=== PATIENT | male | born 1980 | race African-American/Black ===

== ENCOUNTER 2018-12-17 13:02 | Emergency (ER) | payer SELFPAY ==
[2018-12-17] MEDS ORDERED: Sodium Chloride 0.9% 1,000 ML IV ONE (13:19)
[2018-12-17] MEDS ORDERED: Ondansetron 4 MG/2 ML SDV IVPUSH ONE (13:19)
--- NOTE | 2018-12-17 13:23 | EDM.PDOC ---
ED HPI GENERAL MEDICAL PROBLEM - General Chief Complaint: Gastrointestinal Problem Stated Complaint: DAISY FELL WELL Time Seen by Provider: 12/17/18 13:06 Source of Information: Reports: Patient History Limitations: Reports: No Limitations - History of Present Illness INITIAL COMMENTS - FREE TEXT/NARRATIVE: HISTORY AND PHYSICAL: History of present illness: Patient is a 38-year-old male who presents to the emergency room with complaints of nausea, vomiting and dizziness. He reports that he had woke up this morning and had felt well. He presented to work and after lunch had nausea and several bouts of vomiting. He states "I felt like I had been drinking" but has not been consuming any alcohol. Upon presenting to the emergency room he states that he feels "unwell". He denies any dizziness at this point. States he does still have nausea. Patient denies any fever, chills, headache, change in vision, syncope or near syncope. Denies any chest pain, back pain, shortness of breath or cough. Denies any abdominal pain, diarrhea, constipation or dysuria. Has not noted any blood in urine or stool. Patient has been eating and drinking appropriately. Review of systems: As per history of present illness and below otherwise all systems reviewed and negative. Past medical history: As per history of present illness and as reviewed below otherwise noncontributory. Surgical history: As per history of present illness and as reviewed below otherwise noncontributory. Social history: See social history for further information Family history: As per history of present illness and as reviewed below otherwise noncontributory. Physical exam: General: Well-developed and well nourished 38-year-old -[place] male. Alert and oriented. Nontoxic appearing and in no acute distress. HEENT: Atraumatic, normocephalic, pupils equal and reactive bilaterally, negative for conjunctival pallor or scleral icterus, mucous membranes moist, TMs normal bilaterally, throat clear, neck supple, nontender, trachea midline. No drooling or trismus noted. No meningeal signs. No hot potato voice noted. Lungs: Clear to auscultation, breath sounds equal bilaterally, chest nontender. Heart: S1S2, regular rate and rhythm without overt murmur Abdomen: Soft, nondistended, nontender. Negative for masses or hepatosplenomegaly. Negative for costovertebral tenderness. Pelvis: Stable nontender. Genitourinary: Deferred. Rectal: Deferred. Skin: Intact, warm, dry. No lesions or rashes noted. Extremities: Atraumatic, moves all extremities per self without difficulty or deficits, negative for cords or calf pain. Neurovascular unremarkable. Neuro: Awake, alert, oriented. Cranial nerves II through XII unremarkable. Cerebellum unremarkable. Motor and sensory unremarkable throughout. Exam nonfocal. Notes: Lab work is unremarkable. Vital signs are stable and have been reviewed by me. Patient does feel improved after IV fluids and Zofran. He would like to be discharged to home. He continues to deny any chest or abdominal pain. Supportive care measures were reviewed and discussed. Voices understanding and is agreeable to plan of care. Denies any further questions or concerns at this time. Diagnostics: CBC, CMP, EKG, orthostatic vital signs Therapeutics: IV fluid, Zofran Prescription: None Impression: Viral illness Plan: 1. Please use Tylenol and/or Ibuprofen as needed for pain and fever management. 2. Get plenty of Rest. Encourage fluids to prevent dehydration. 3. Please follow up with your primary care provider. Return to the ED as needed as discussed. Definitive disposition and diagnosis as appropriate pending reevaluation and review of above. - Related Data Allergies Allergy/AdvReac Type Severity Reaction Status Date / Time No Known Allergies Allergy Verified 12/17/18 13:11 Home Meds: Home Meds . [No Known Home Meds] 01/16/15 [History] . [No Known Home Meds] 02/27/15 [History] Past Medical History - Past Health History Medical/Surgical History: Denies Medical/Surgical History Social & Family History - Family History Family Medical History: Noncontributory - Tobacco Use Smoking Status *Q: Current Every Day Smoker Years of Tobacco use: 20 Packs/Tins Daily: 1 - Caffeine Use Caffeine Use: Reports: None - Recreational Drug Use Recreational Drug Use: No ED ROS GENERAL - Review of Systems Review Of Systems: ROS reveals no pertinent complaints other than HPI. ED EXAM, GI/ABD - Physical Exam Exam: See Below (See dictation) Course - Vital Signs Last Recorded V/S: Last Vital Signs Temp 97.4 F 12/17/18 13:12 Pulse 69 12/17/18 13:12 Resp 18 12/17/18 13:12 BP 134/80 12/17/18 13:12 Pulse Ox 99 12/17/18 13:12 Orthostatic Blood Pressure [ 148/81 Standing] Orthostatic Blood Pressure [ 140/88 Sitting] Orthostatic Blood Pressure [ 145/85 Supine] - Orders/Labs/Meds Orders: Active Orders 24 hr Category Date Time Status EKG 12 Lead [EKG Documentation Completion] [RC] STAT Care 12/17/18 13:19 Active Orthostatic Vital Signs [RC] ASDIRECTED Care 12/17/18 13:19 Active Labs: Laboratory Tests 12/17/18 12/17/18 Range/Units 13:33 13:33 WBC 5.64 (4.0-11.0) K/uL RBC 5.09 (4.50-5.90) M/uL Hgb 16.0 (13.0-17.0) g/dL Hct 44.0 (38.0-50.0) % MCV 86.4 (80.0-98.0) fL MCH 31.4 (27.0-32.0) pg MCHC 36.4 (31.0-37.0) g/dL RDW Std Deviation 40.6 (28.0-62.0) fl RDW Coeff of Dru 13 (11.0-15.0) % Plt Count 108 L (150-400) K/uL MPV 11.10 (7.40-12.00) fL Neut % (Auto) 45.2 L (48.0-80.0) % Lymph % (Auto) 43.1 H (16.0-40.0) % [place] % (Auto) 10.1 (0.0-15.0) % Eos % (Auto) 1.2 (0.0-7.0) % Baso % (Auto) 0.4 (0.0-1.5) % Neut # (Auto) 2.6 (1.4-5.7) K/uL Lymph # (Auto) 2.4 (0.6-2.4) K/uL [place] # (Auto) 0.6 (0.0-0.8) K/uL Eos # (Auto) 0.1 (0.0-0.7) K/uL Baso # (Auto) 0.0 (0.0-0.1) K/uL Nucleated RBC % 0.0 /100WBC Nucleated RBCs # 0 K/uL Sodium 139 (136-148) mmol/L Potassium 3.6 (3.5-5.1) mmol/L Chloride 102 (98-107) mmol/L Carbon Dioxide 25.8 (21.0-32.0) mmol/L BUN 9 (7.0-18.0) mg/dL Creatinine 0.8 (0.8-1.3) mg/dL Est Cr Clr Drug Dosing 139.93 mL/min Estimated GFR (MDRD) > 60.0 ml/min Glucose 92 (74-106) mg/dL Calcium 9.2 (8.5-10.1) mg/dL Total Bilirubin 0.8 (0.2-1.0) mg/dL AST 28 (15-37) IU/L ALT 33 (14-63) IU/L Alkaline Phosphatase 79 (46-116) U/L Total Protein 7.6 (6.4-8.2) g/dL Albumin 4.2 (3.4-5.0) g/dL Globulin 3.4 (2.6-4.0) g/dL Albumin/Globulin Ratio 1.2 (0.9-1.6) Meds: Medications Discontinued Medications Generic Name Dose Route Start Last Admin Trade Name Freq PRN Reason Stop Dose Admin Sodium Chloride 1,000 mls @ 999 mls/hr 12/17/18 13:19 12/17/18 13:36 Normal Saline IV 12/17/18 14:19 999 mls/hr STAT ONE Administration Ondansetron HCl 4 mg 12/17/18 13:19 12/17/18 13:36 Zofran IVPUSH 12/17/18 13:20 4 mg ONETIME ONE Administration Departure - Departure Time of Disposition: 14:24 Disposition: Home, Self-Care 01 Clinical Impression: Viral illness - Discharge Information Instructions: Viral Gastroenteritis, Adult, [id number] Referrals: PCP,Unknown [Primary Care Provider] - Forms: ED Department Discharge Additional Instructions: The following information is given to patients seen in the emergency department who are being discharged to home. This information is to outline your options for follow-up care. We provide all patients seen in our emergency department with a follow-up referral. The need for follow-up, as well as the timing and circumstances, are variable depending upon the specifics of your emergency department visit. If you don't have a primary care physician on staff, we will provide you with a referral. We always advise you to contact your personal physician following an emergency department visit to inform them of the circumstance of the visit and for follow-up with them and/or the need for any referrals to a consulting specialist. The emergency department will also refer you to a specialist when appropriate. This referral assures that you have the opportunity for follow-up care with a specialist. All of these measure are taken in an effort to provide you with optimal care, which includes your follow-up. Under all circumstances we always encourage you to contact your private physician who remains a resource for coordinating your care. When calling for follow-up care, please make the office aware that this follow-up is from your recent emergency room visit. If for any reason you are refused follow-up, please contact the [facility] Emergency Department at and asked to speak to the emergency department charge nurse. [facility] [address] [place] [address] [place] [address] 1. Please use Tylenol and/or Ibuprofen as needed for pain and fever management. 2. Get plenty of Rest. Encourage fluids to prevent dehydration. 3. Please follow up with your primary care provider. Return to the ED as needed as discussed. - My Orders Last 24 Hours: My Active Orders 12/17/18 13:19 EKG 12 Lead [EKG Documentation Completion] [RC] STAT Orthostatic Vital Signs [RC] ASDIRECTED - Assessment/Plan Last 24 Hours: My Active Orders 12/17/18 13:19 EKG 12 Lead [EKG Documentation Completion] [RC] STAT Orthostatic Vital Signs [RC] ASDIRECTED
[2018-12-17 14:21] LABS: CHLORIDE,CL 102 mmol/L (98-107); SODIUM,NA 139 mmol/L (136-148)
[2018-12-17 14:34] VITALS: BP 134/69
== END 2018-12-17 14:40 | disposition home or self-care (01) ==
LOC: MW.ED 13:02
DX: B34.9 Viral infection, unspecified (principal); F17.210 Nicotine dependence, cigarettes, uncomplicated
CPT/HCPCS: 36415; 80053; 85025; 93005; 96361; 96374; 99283; J2405; J7040

== ENCOUNTER 2019-02-21 19:44 | Emergency (ER) | payer SELFPAY ==
[2019-02-21 19:56] VITALS: BP 121/77; PULSE 79
--- NOTE | 2019-02-21 20:15 | EDM.PDOC ---
ED HPI GENERAL MEDICAL PROBLEM - General Chief Complaint: Neuro Symptoms/Deficits Stated Complaint: PT HAS INFECTION Time Seen by Provider: 02/21/19 19:52 Source of Information: Reports: Patient History Limitations: Reports: No Limitations - History of Present Illness INITIAL COMMENTS - FREE TEXT/NARRATIVE: HISTORY AND PHYSICAL: History of present illness: Patient is a 38-year-old male who presents to the emergency room requesting lab work. He states he has had intermittent dizziness since November. I did see this patient in the ER on 12/17/18 for this complaint. At that time his lab workup was normal. Since that time he has episodes of dizziness when he is out in the heat for long periods of time. His said she had similar symptoms and was recently diagnosed with hepatitis B. She is currently being "treated" and she encouraged him to get tested/treated. He states he has been trying to get into the clinic but has "not been able to get a hold of anyone". He is currently asymptomatic. He states he is here requesting hepatitis panel. Patient denies any fever, chills, headache, change in vision, syncope or near syncope. Denies any chest pain, back pain, shortness of breath or cough. Denies any abdominal pain, nausea, vomiting, diarrhea, constipation or dysuria. Has not noted any blood in urine or stool. Patient has been eating and drinking appropriately. Review of systems: As per history of present illness and below otherwise all systems reviewed and negative. Past medical history: As per history of present illness and as reviewed below otherwise noncontributory. Surgical history: As per history of present illness and as reviewed below otherwise noncontributory. Social history: See social history for further information Family history: As per history of present illness and as reviewed below otherwise noncontributory. Physical exam: General: Well-developed and well-nourished 38-year-old male. Alert and oriented. Nontoxic appearing and in no acute distress. HEENT: Atraumatic, normocephalic, pupils equal and reactive bilaterally, negative for conjunctival pallor or scleral icterus, mucous membranes moist, TMs normal bilaterally, throat clear, neck supple, nontender, trachea midline. No drooling or trismus noted. No meningeal signs. No hot potato voice noted. Lungs: Clear to auscultation, breath sounds equal bilaterally, chest nontender. Heart: S1S2, regular rate and rhythm without overt murmur Abdomen: Soft, nondistended, nontender. Negative for masses or hepatosplenomegaly. Negative for costovertebral tenderness. Pelvis: Stable nontender. Genitourinary: Deferred. Rectal: Deferred. Skin: Intact, warm, dry. No lesions or rashes noted. Extremities: Atraumatic, moves all extremities per self without difficulty or deficits, negative for cords or calf pain. Neurovascular unremarkable. Neuro: Awake, alert, oriented. Cranial nerves II through XII unremarkable. Cerebellum unremarkable. Motor and sensory unremarkable throughout. Exam nonfocal. Notes: My physical examination is normal. He states he is not currently dizzy. At this time he would only like the hepatitis panel be drawn. He declines the need for IV fluids or a head CT. I will do a CBC, CMP and hepatitis panel - although we discussed that this is not an emergent test. I informed him that he would need to follow up with her primary care provider for further care if any of these results returned positive. Supportive care measures were reviewed and discussed. Voices understanding and is agreeable to plan of care. Denies any further questions or concerns at this time. Diagnostics: CBC, CMP, hepatitis panel Therapeutics: None Prescription: None Impression: Encounter for lab testing Plan: 1. The hepatitis panel is a send out. We will not get results for several days 2. Increase your oral fluids. Take frequent breaks when out in the heat. 3. Follow-up with your primary care provider as we discussed. Return to the ED as needed and as discussed. Definitive disposition and diagnosis as appropriate pending reevaluation and review of above. - Related Data Allergies Allergy/AdvReac Type Severity Reaction Status Date / Time No Known Allergies Allergy Verified 02/21/19 19:54 Home Meds: Home Meds . [No Known Home Meds] 01/16/15 [History] . [No Known Home Meds] 02/27/15 [History] Past Medical History - Past Health History Medical/Surgical History: Denies Medical/Surgical History Neurological History: Reports: Other (See Below) Other Neuro History: dizziness - Past Surgical History Neurological Surgical History: Reports: None Social & Family History - Family History Family Medical History: Noncontributory - Tobacco Use Smoking Status *Q: Current Every Day Smoker Years of Tobacco use: 10 Packs/Tins Daily: 1 - Caffeine Use Caffeine Use: Reports: Coffee - Alcohol Use Days Per Week of Alcohol Use: 7 Number of Drinks Per Day: 1 Total Drinks Per Week: 7 - Recreational Drug Use Recreational Drug Use: No ED ROS GENERAL - Review of Systems Review Of Systems: ROS reveals no pertinent complaints other than HPI. ED EXAM, NEURO - Physical Exam Exam: See Below (See dictation) Course - Vital Signs Last Recorded V/S: Last Vital Signs Temp 96.8 F 02/21/19 19:49 Pulse 79 02/21/19 19:49 Resp 17 02/21/19 19:49 BP 121/77 02/21/19 19:49 Pulse Ox 96 02/21/19 19:49 - Orders/Labs/Meds Orders: Active Orders 24 hr Category Date Time Status HEPATITIS PANEL (4) [REF] Stat Lab 02/21/19 20:30 Received Labs: Laboratory Tests 02/21/19 02/21/19 Range/Units 20:30 20:30 WBC 5.54 (4.0-11.0) K/uL RBC 4.65 (4.50-5.90) M/uL Hgb 14.6 (13.0-17.0) g/dL Hct 40.6 (38.0-50.0) % MCV 87.3 (80.0-98.0) fL MCH 31.4 (27.0-32.0) pg MCHC 36.0 (31.0-37.0) g/dL RDW Std Deviation 42.2 (28.0-62.0) fl RDW Coeff of Dru 13 (11.0-15.0) % Plt Count 113 L (150-400) K/uL MPV 11.00 (7.40-12.00) fL Neut % (Auto) 33.1 L (48.0-80.0) % Lymph % (Auto) 57.4 H (16.0-40.0) % [place] % (Auto) 6.1 (0.0-15.0) % Eos % (Auto) 2.9 (0.0-7.0) % Baso % (Auto) 0.5 (0.0-1.5) % Neut # (Auto) 1.8 (1.4-5.7) K/uL Lymph # (Auto) 3.2 H (0.6-2.4) K/uL [place] # (Auto) 0.3 (0.0-0.8) K/uL Eos # (Auto) 0.2 (0.0-0.7) K/uL Baso # (Auto) 0.0 (0.0-0.1) K/uL Nucleated RBC % 0.0 /100WBC Nucleated RBCs # 0 K/uL Sodium 140 (136-148) mmol/L Potassium 4.2 (3.5-5.1) mmol/L Chloride 103 (98-107) mmol/L Carbon Dioxide 25.8 (21.0-32.0) mmol/L BUN 16 (7.0-18.0) mg/dL Creatinine 0.8 (0.8-1.3) mg/dL Est Cr Clr Drug Dosing 137.22 mL/min Estimated GFR (MDRD) > 60.0 ml/min Glucose 89 (74-106) mg/dL Calcium 9.0 (8.5-10.1) mg/dL Total Bilirubin 0.6 (0.2-1.0) mg/dL AST 34 (15-37) IU/L ALT 42 (14-63) IU/L Alkaline Phosphatase 86 (46-116) U/L Total Protein 6.9 (6.4-8.2) g/dL Albumin 4.0 (3.4-5.0) g/dL Globulin 2.9 (2.6-4.0) g/dL Albumin/Globulin Ratio 1.4 (0.9-1.6) Departure - Departure Time of Disposition: 21:17 Disposition: Home, Self-Care 01 Clinical Impression: Encounter for laboratory test - Discharge Information Instructions: Hepatitis B, [id number] Referrals: PCP,None [Primary Care Provider] - Forms: ED Department Discharge Additional Instructions: The following information is given to patients seen in the emergency department who are being discharged to home. This information is to outline your options for follow-up care. We provide all patients seen in our emergency department with a follow-up referral. The need for follow-up, as well as the timing and circumstances, are variable depending upon the specifics of your emergency department visit. If you don't have a primary care physician on staff, we will provide you with a referral. We always advise you to contact your personal physician following an emergency department visit to inform them of the circumstance of the visit and for follow-up with them and/or the need for any referrals to a consulting specialist. The emergency department will also refer you to a specialist when appropriate. This referral assures that you have the opportunity for follow-up care with a specialist. All of these measure are taken in an effort to provide you with optimal care, which includes your follow-up. Under all circumstances we always encourage you to contact your private physician who remains a resource for coordinating your care. When calling for follow-up care, please make the office aware that this follow-up is from your recent emergency room visit. If for any reason you are refused follow-up, please contact the [facility] Emergency Department at and asked to speak to the emergency department charge nurse. [facility] [address] [place] [address] [place] [address] 1. The hepatitis panel is a send out. We will not get results for several days 2. Increase your oral fluids. Take frequent breaks when out in the heat. 3. Follow-up with your primary care provider as we discussed. Return to the ED as needed and as discussed. - My Orders Last 24 Hours: My Active Orders 02/21/19 20:30 HEPATITIS PANEL (4) [REF] Stat - Assessment/Plan Last 24 Hours: My Active Orders 02/21/19 20:30 HEPATITIS PANEL (4) [REF] Stat
[2019-02-21 21:13] LABS: BLOOD UREA NITROGEN,BUN 16 mg/dL (7.0-18.0); CARBON DIOXIDE,CO2 25.8 mmol/L (21.0-32.0); CHLORIDE,CL 103 mmol/L (98-107); GLUCOSE RANDOM 89 mg/dL (74-106); POTASSIUM,K 4.2 mmol/L (3.5-5.1); SODIUM,NA 140 mmol/L (136-148)
== END 2019-02-21 21:25 | disposition home or self-care (01) ==
LOC: MW.ED 19:44
DX: Z00.00 Encounter for general adult medical examination without abnormal findings (principal); F17.210 Nicotine dependence, cigarettes, uncomplicated
CPT/HCPCS: 36415; 80053; 80074; 85025; 99282

== ENCOUNTER 2019-08-17 08:26 | Emergency (ER) | payer OTHER ==
[2019-08-17 09:08] VITALS: BP 110/70; PULSE 88
[2019-08-17] MEDS ORDERED: Ketorolac 60 MG/2 ML SDV IM ONE (09:36)
--- NOTE | 2019-08-17 09:37 | CR ---
Lumbar spine: AP, lateral and coned-down lateral view centered to the lumbosacral junction were obtained. Slight anterior wedging is noted of T12, L1 and L2. These are most likely old. Other vertebral body heights are maintained. Disc spaces are fairly well-preserved. Pedicles are intact. Transverse and spinous processes are intact. Sacroiliac joints are unremarkable. Mild vascular calcification is seen. Impression: 1. Mild anterior wedge deformities as noted above most likely old. 2. Mild vascular calcification. 3. Other portions of the 3 view lumbar spine study are unremarkable. Diagnostic code #2 This report was dictated in [place] Standard Time
--- NOTE | 2019-08-17 09:39 | EDM.PDOC ---
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 Past medical history: As per history of present illness and as reviewed below otherwise noncontributory. Surgical history: As per history of present illness and as reviewed below otherwise noncontributory. Social history: No reported history of drug or alcohol abuse. Family history: As per history of present illness and as reviewed below otherwise noncontributory. Physical exam: HEENT: Atraumatic, normocephalic, pupils reactive, negative for conjunctival pallor or scleral icterus, mucous membranes moist, throat clear, neck supple, nontender, trachea midline. Lungs: Clear to auscultation, breath sounds equal bilaterally, chest nontender. Heart: S1S2, regular, negative for clicks, rubs, or JVD. Abdomen: Soft, nondistended, nontender. Negative for masses or hepatosplenomegaly. Negative for costovertebral tenderness. Pelvis: Stable nontender. Genitourinary: Deferred. Rectal: Deferred. Extremities: Atraumatic, negative for cords or calf pain. Neurovascular unremarkable. Neuro: Awake, alert, oriented. Cranial nerves II through XII unremarkable. Cerebellum unremarkable. Motor and sensory unremarkable throughout. Exam nonfocal. Musculoskeletal spinous muscle spasm noted lumbar spine left greater than right no vertebral point tenderness Diagnostics: [Spine UA Patient declined UA ] Therapeutics: [Toradol 60 IM Toradol No. 15 no refill ] Impression: [Paraspinous muscle spasm] Definitive disposition and diagnosis as appropriate pending reevaluation and review of above. Lower Back Pain Score (Numeric/FACES): 9 - Related Data Allergies Allergy/AdvReac Type Severity Reaction Status Date / Time No Known Allergies Allergy Verified 08/17/19 09:03 Home Meds: Home Meds . [No Known Home Meds] 01/16/15 [History] . [No Known Home Meds] 02/27/15 [History] Past Medical History - Past Health History Medical/Surgical History: Denies Medical/Surgical History Neurological History: Reports: Other (See Below) Other Neuro History: dizziness - Infectious Disease History Infectious Disease History: Reports: None - Past Surgical History Neurological Surgical History: Reports: None Social & Family History - Family History Family Medical History: Noncontributory - Tobacco Use Smoking Status *Q: Current Every Day Smoker Years of Tobacco use: 10 Packs/Tins Daily: 1 - Caffeine Use Caffeine Use: Reports: None - Recreational Drug Use Recreational Drug Use: No ED ROS GENERAL - Review of Systems Review Of Systems: See Below ED EXAM, GENERAL - Physical Exam Exam: See Below Course - Vital Signs Last Recorded V/S: Last Vital Signs Temp 97.1 F 08/17/19 09:04 Pulse 88 08/17/19 09:04 Resp 16 08/17/19 09:04 BP 110/70 08/17/19 09:04 Pulse Ox 97 08/17/19 09:04 - Orders/Labs/Meds Orders: Active Orders 24 hr Category Date Time Status UA RFX KAMILA AND CULT IF INDIC [URIN] Stat Lab 08/17/19 09:28 Received Meds: Medications Discontinued Medications Generic Name Dose Route Start Last Admin Trade Name Fran PRN Reason Stop Dose Admin Ketorolac Tromethamine 60 mg 08/17/19 09:36 Toradol IM 08/17/19 09:37 ONETIME ONE Departure - Departure Time of Disposition: 09:39 Disposition: Home, Self-Care 01 Condition: Good Clinical Impression: Lumbar paraspinal muscle spasm - Discharge Information Referrals: PCP,None [Primary Care Provider] - Additional Instructions: The following information is given to patients seen in the emergency department who are being discharged to home. This information is to outline your options for follow-up care. We provide all patients seen in our emergency department with a follow-up referral. The need for follow-up, as well as the timing and circumstances, are variable depending upon the specifics of your emergency department visit. If you don't have a primary care physician on staff, we will provide you with a referral. We always advise you to contact your personal physician following an emergency department visit to inform them of the circumstance of the visit and for follow-up with them and/or the need for any referrals to a consulting specialist. The emergency department will also refer you to a specialist when appropriate. This referral assures that you have the opportunity for follow-up care with a specialist. All of these measure are taken in an effort to provide you with optimal care, which includes your follow-up. Under all circumstances we always encourage you to contact your private physician who remains a resource for coordinating your care. When calling for follow-up care, please make the office aware that this follow-up is from your recent emergency room visit. If for any reason you are refused follow-up, please contact the [facility] emergency department at and asked to speak to the emergency department charge nurse. Sepsis Event Note - Evaluation Sepsis Screening Result: No Definite Risk - Focused Exam Vital Signs: Vital Signs Temp Pulse Resp BP Pulse Ox 08/17/19 09:04 97.1 F 88 16 110/70 97 Date Exam was Performed: 08/17/19 Time Exam was Performed: 09:37 - My Orders Last 24 Hours: My Active Orders 08/17/19 09:28 UA RFX KAMILA AND CULT IF INDIC [URIN] Stat - Assessment/Plan Last 24 Hours: My Active Orders 08/17/19 09:28 UA RFX KAMILA AND CULT IF INDIC [URIN] Stat
== END 2019-08-17 10:11 | disposition home or self-care (01) ==
LOC: MW.ED 08:26
DX: M62.830 Muscle spasm of back (principal); F17.210 Nicotine dependence, cigarettes, uncomplicated
CPT/HCPCS: 72100; 81003; 96372; 99283; J1885

== ENCOUNTER 2019-09-18 21:44 | Emergency (ER) | payer BC, OTHER ==
--- NOTE | 2019-09-18 22:30 | EDM.PDOC ---
ED HPI GENERAL MEDICAL PROBLEM - General Chief Complaint: General Stated Complaint: RIGHT SIDE ABDOMINAL PAIN,BACK,CHEST Time Seen by Provider: 09/18/19 21:47 Source of Information: Reports: Patient History Limitations: Reports: No Limitations - History of Present Illness INITIAL COMMENTS - FREE TEXT/NARRATIVE: CC HPI: This is a 39-year-old male that was seen here on August 15 for low back pain. He was prescribed Toradol. He has been taking Tylenol and ibuprofen but still has lower back pain that extends up to his left chest wall throughout his abdomen. He denies any testicular pain or swelling denies any hematuria or dysuria denies any fever or chills he has respirophasic left-sided chest pain he denies any cough or hemoptysis weight loss or night sweats PMHX/PSHX: Negative Social History: Positive for tobacco, negative for alcohol, negative for street drugs or marijuana Family history: Hypertension ROS: see chart PE: VS afebrile vital signs stable General: No apparent distress Head: Atraumatic normocephalic no lumps bumps or bruises Eyes: EOMI PERRLA Ears: TMs intact no hemotympanum no signs of infection no mastoid tenderness Nose: No epistaxis nares patent no septal wall hematoma Throat: No pharyngeal erythema or exudate no tonsillar enlargement Neck: Supple, no cervical lymphadenopathy Chest wall: No point tenderness Heart: Regular rate and rhythm without murmur gallop or rub Lungs: Clear to auscultation and percussion without rales rhonchi or wheeze Abdomen: Soft nontender nondistended without guarding rigidity or rebound Neck: No spinal point tenderness full range of motion in all 6 directions Back: No spinal paraspinal or CVA tenderness Extremities: full rom through out. no effusions skin: Warm dry intact no rashes neurologic: cranial nerves II through XII intact. No focal motor or sensory deficits noted MDM: Differential diagnosis: Pulmonary embolism, musculoskeletal back pain, ureterolithiasis pneumonia ED course: Patient with fall asleep quite easily in the bed and was hard to wake him up so we held off on giving him pain medications CBC and chemistries were unremarkable but his d-dimer was elevated chest x-ray showed a small pleural effusion. CTA of the chest shows a moderate left pleural effusion but no pulmonary embolism. Patient given Toradol for his pain and is feeling much better. He is a smoker. Discussed this case with Dr. Perry of the hospitalist service and he informs me that there is no radiology service in hospital to perform a thoracentesis which would be required for the work-up of this patient. Therefore I am going to transfer him to my not so that he can get some timely care. Diagnosis: Left pleural effusion Disposition: Transfer L lower back radiating up to chest and shoulder Pain Score (Numeric/FACES): 8 - Related Data Allergies Allergy/AdvReac Type Severity Reaction Status Date / Time No Known Allergies Allergy Verified 09/18/19 21:53 Home Meds: Home Meds . [No Known Home Meds] 02/27/15 [History] Past Medical History - Past Health History Medical/Surgical History: Denies Medical/Surgical History Neurological History: Reports: Other (See Below) Other Neuro History: dizziness hx - Infectious Disease History Infectious Disease History: Reports: None - Past Surgical History Neurological Surgical History: Reports: None Social & Family History - Family History Family Medical History: Noncontributory - Tobacco Use Smoking Status *Q: Current Every Day Smoker Years of Tobacco use: 10 Packs/Tins Daily: 0.5 - Caffeine Use Caffeine Use: Reports: None - Recreational Drug Use Recreational Drug Use: No ED ROS GENERAL - Review of Systems Review Of Systems: Comprehensive ROS is negative, except as noted in HPI. ED EXAM, GENERAL - Physical Exam Exam: See Below Free Text/Narrative:: See my H and P Course - Vital Signs Last Recorded V/S: Last Vital Signs Temp 37.3 C 09/19/19 03:16 Pulse 100 09/19/19 03:16 Resp 18 09/19/19 03:16 BP 143/80 H 09/19/19 03:16 Pulse Ox 90 L 09/19/19 03:16 - Orders/Labs/Meds Labs: Laboratory Tests 09/18/19 09/18/19 09/18/19 Range/Units 23:00 23:00 23:00 WBC 6.31 (4.0-11.0) K/uL RBC 4.64 (4.50-5.90) M/uL Hgb 13.9 (13.0-17.0) g/dL Hct 39.7 (38.0-50.0) % MCV 85.6 (80.0-98.0) fL MCH 30.0 (27.0-32.0) pg MCHC 35.0 (31.0-37.0) g/dL RDW Std Deviation 39.2 (28.0-62.0) fl RDW Coeff of Dru 13 (11.0-15.0) % Plt Count 188 (150-400) K/uL MPV 9.90 (7.40-12.00) fL Neut % (Auto) 58.0 (48.0-80.0) % Lymph % (Auto) 28.2 (16.0-40.0) % Bollinger % (Auto) 8.7 (0.0-15.0) % Eos % (Auto) 4.8 (0.0-7.0) % Baso % (Auto) 0.3 (0.0-1.5) % Neut # (Auto) 3.7 (1.4-5.7) K/uL Lymph # (Auto) 1.8 (0.6-2.4) K/uL Bollinger # (Auto) 0.6 (0.0-0.8) K/uL Eos # (Auto) 0.3 (0.0-0.7) K/uL Baso # (Auto) 0.0 (0.0-0.1) K/uL Nucleated RBC % 0.0 /100WBC Nucleated RBCs # 0 K/uL INR 0.96 D-Dimer, Quantitative 0.83 H (0.0-0.50) mg/L FEU Sodium (136-148) mmol/L Potassium (3.5-5.1) mmol/L Chloride (98-107) mmol/L Carbon Dioxide (21.0-32.0) mmol/L BUN (7.0-18.0) mg/dL Creatinine (0.8-1.3) mg/dL Est Cr Clr Drug Dosing mL/min Estimated GFR (MDRD) ml/min Glucose (74-106) mg/dL Calcium (8.5-10.1) mg/dL Total Bilirubin (0.2-1.0) mg/dL AST (15-37) IU/L ALT (14-63) IU/L Alkaline Phosphatase (46-116) U/L Troponin I (0.000-0.056) ng/mL Total Protein (6.4-8.2) g/dL Albumin (3.4-5.0) g/dL Globulin (2.6-4.0) g/dL Albumin/Globulin Ratio (0.9-1.6) Lipase (73-393) U/L Urine Color Urine Appearance Urine pH (5.0-8.0) Ur Specific [place] (1.001-1.035) Urine Protein (NEGATIVE) mg/dL Urine Glucose (UA) (NEGATIVE) mg/dL Urine Ketones (NEGATIVE) mg/dL Urine Occult Blood (NEGATIVE) Urine Nitrite (NEGATIVE) Urine Bilirubin (NEGATIVE) Urine Urobilinogen (<2.0) EU/dL Ur Leukocyte Esterase (NEGATIVE) Urine Opiates Screen (NEGATIVE) Ur Oxycodone Screen (NEGATIVE) Urine Methadone Screen (NEGATIVE) Ur Barbiturates Screen (NEGATIVE) Ur Phencyclidine Scrn (NEGATIVE) Ur Amphetamine Screen (NEGATIVE) U Methamphetamines Scrn (NEGATIVE) U Benzodiazepines Scrn (NEGATIVE) U Cocaine Metab Screen (NEGATIVE) U Marijuana (THC) Screen (NEGATIVE) 09/18/19 09/18/19 09/18/19 Range/Units 23:00 23:10 23:10 WBC (4.0-11.0) K/uL RBC (4.50-5.90) M/uL Hgb (13.0-17.0) g/dL Hct (38.0-50.0) % MCV (80.0-98.0) fL MCH (27.0-32.0) pg MCHC (31.0-37.0) g/dL RDW Std Deviation (28.0-62.0) fl RDW Coeff of Dru (11.0-15.0) % Plt Count (150-400) K/uL MPV (7.40-12.00) fL Neut % (Auto) (48.0-80.0) % Lymph % (Auto) (16.0-40.0) % Bollinger % (Auto) (0.0-15.0) % Eos % (Auto) (0.0-7.0) % Baso % (Auto) (0.0-1.5) % Neut # (Auto) (1.4-5.7) K/uL Lymph # (Auto) (0.6-2.4) K/uL Bollinger # (Auto) (0.0-0.8) K/uL Eos # (Auto) (0.0-0.7) K/uL Baso # (Auto) (0.0-0.1) K/uL Nucleated RBC % /100WBC Nucleated RBCs # K/uL INR D-Dimer, Quantitative (0.0-0.50) mg/L FEU Sodium 139 (136-148) mmol/L Potassium 3.7 (3.5-5.1) mmol/L Chloride 103 (98-107) mmol/L Carbon Dioxide 26.0 (21.0-32.0) mmol/L BUN 10 (7.0-18.0) mg/dL Creatinine 0.8 (0.8-1.3) mg/dL Est Cr Clr Drug Dosing 146.00 mL/min Estimated GFR (MDRD) > 60.0 ml/min Glucose 94 (74-106) mg/dL Calcium 9.1 (8.5-10.1) mg/dL Total Bilirubin 0.5 (0.2-1.0) mg/dL AST 21 (15-37) IU/L ALT 25 (14-63) IU/L Alkaline Phosphatase 83 (46-116) U/L Troponin I < 0.050 (0.000-0.056) ng/mL Total Protein 7.1 (6.4-8.2) g/dL Albumin 3.0 L (3.4-5.0) g/dL Globulin 4.1 H (2.6-4.0) g/dL Albumin/Globulin Ratio 0.7 L (0.9-1.6) Lipase 85 (73-393) U/L Urine Color YELLOW Urine Appearance CLEAR Urine pH 5.5 (5.0-8.0) Ur Specific Cal[place] 1.010 (1.001-1.035) Urine Protein NEGATIVE (NEGATIVE) mg/dL Urine Glucose (UA) NEGATIVE (NEGATIVE) mg/dL Urine Ketones NEGATIVE (NEGATIVE) mg/dL Urine Occult Blood NEGATIVE (NEGATIVE) Urine Nitrite NEGATIVE (NEGATIVE) Urine Bilirubin NEGATIVE (NEGATIVE) Urine Urobilinogen 0.2 (<2.0) EU/dL Ur Leukocyte Esterase NEGATIVE (NEGATIVE) Urine Opiates Screen NEGATIVE (NEGATIVE) Ur Oxycodone Screen NEGATIVE (NEGATIVE) Urine Methadone Screen NEGATIVE (NEGATIVE) Ur Barbiturates Screen NEGATIVE (NEGATIVE) Ur Phencyclidine Scrn NEGATIVE (NEGATIVE) Ur Amphetamine Screen NEGATIVE (NEGATIVE) U Methamphetamines Scrn NEGATIVE (NEGATIVE) U Benzodiazepines Scrn NEGATIVE (NEGATIVE) U Cocaine Metab Screen NEGATIVE (NEGATIVE) U Marijuana (THC) Screen NEGATIVE (NEGATIVE) Meds: Medications Discontinued Medications Generic Name Dose Route Start Last Admin Trade Name Freq PRN Reason Stop Dose Admin Iopamidol 100 ml 09/19/19 00:43 09/19/19 02:03 Isovue-370 (76%) IVPUSH 09/19/19 00:44 100 ml ONETIME STA Administration Ketorolac Tromethamine 15 mg 09/19/19 01:43 09/19/19 01:50 Toradol IVPUSH 09/19/19 01:44 15 mg ONETIME ONE Administration Departure - Departure Time of Disposition: :20 Disposition: DC/Tfer to Acute Hospital 02 Clinical Impression: Pleural effusion - Discharge Information Referrals: PCP,None [Primary Care Provider] - Forms: ED Department Discharge Sepsis Event Note - Evaluation Sepsis Screening Result: No Definite Risk - Focused Exam Vital Signs: Vital Signs Temp Pulse Resp BP Pulse Ox 09/19/19 03:16 37.3 C 100 18 143/80 H 90 L 09/19/19 02:05 106 H 16 141/85 H 91 L 09/18/19 21:47 36.5 C 95 18 138/102 H 93 L Date Exam was Performed: 09/19/19 Time Exam was Performed: 03:19
--- NOTE | 2019-09-18 23:08 | CR ---
INDICATION: Chest pain TECHNIQUE: Chest radiograph 1 view COMPARISON: 02/27/2015 FINDINGS: Mediastinum: The mediastinum is normal in appearance. The heart silhouette is normal in size and morphology. Lung: Airspace infiltrates are present in the left lung base with small left pleural effusion. Bone and Soft tissue: Unremarkable for age. IMPRESSION: 1. Airspace infiltrates are present in the left lung base with small left pleural effusion. Dictated by Kalia Nichols MD @ 09/18/2019 11:05:56 PM Dictated by: Kalia Nichols MD @ 09/18/2019 23:06:00 (Electronically Signed)
[2019-09-18 23:37] LABS: BLOOD UREA NITROGEN,BUN 10 mg/dL (7.0-18.0); CHLORIDE,CL 103 mmol/L (98-107); GLUCOSE RANDOM 94 mg/dL (74-106); LIPASE 85 U/L (73-393); POTASSIUM,K 3.7 mmol/L (3.5-5.1); SODIUM,NA 139 mmol/L (136-148)
[2019-09-19] MEDS ORDERED: Iopamidol 755 Mg/ML 100 ML Bottle IVPUSH STA (00:43)
[2019-09-19] MEDS ORDERED: Ketorolac 15 MG/ML SDV IVPUSH ONE (01:43)
--- NOTE | 2019-09-19 02:32 | CT ---
INDICATION: Chest pain with elevated D-dimer TECHNIQUE: CT chest with i.v. contrast using pulmonary angiographic technique. Coronal and sagittal reformats were obtained. CONTRAST: 100 mL Isovue 370 COMPARISON: None FINDINGS: Cardiovascular: The pulmonary arteries are unremarkable in enhancement with no evidence of acute pulmonary embolism. The heart has an unremarkable appearance and size. No sign of aneurysm in the thoracic aorta. Mediastinum: No mass or adenopathy seen. Lung: Compressive and passive atelectasis of the left lower lobe is noted. Mild dependent discoid atelectasis is seen in the right lower lobe. Mild centrilobular emphysema is present and apices. Pleura and pericardium: A moderate left pleural effusion is present. No significant pericardial effusion is present. Chest wall and axilla: No mass or adenopathy seen. Bone: Unremarkable for age. Upper abdomen: Unremarkable. IMPRESSIONS: 1. No CT evidence of acute pulmonary emboli seen. 2. A moderate left pleural effusion is present. Bibasilar atelectasis is present with left greater than right. Dictated by Kalia Nichols MD @ 09/19/2019 2:31:14 AM Please note that all CT scans at this facility use dose modulation, iterative reconstruction, and/or weight-based dosing when appropriate to reduce radiation dose to as low as reasonably achievable. Dictated by: Kalia Nichols MD @ 09/19/2019 02:31:23 (Electronically Signed)
[2019-09-19 03:17] VITALS: BP 143/80; PULSE 100
== END 2019-09-19 04:10 ==
LOC: MW.ED 21:44
DX: J90 Pleural effusion, not elsewhere classified (principal); F17.210 Nicotine dependence, cigarettes, uncomplicated
CPT/HCPCS: 36415; 71045; 71275; 80053; 80305; 81003; 83690; 84484; 85025; 85379; 85610; 87804; 96374; 99285; J1885; Q9967

== ENCOUNTER 2020-05-11 11:27 | Emergency (ER) | payer SELFPAY ==
[2020-05-11] MEDS ORDERED: Meclizine 25 MG Tab PO ONE (11:36)
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
--- NOTE | 2020-05-11 12:23 | CR ---
INDICATION: Chest pain COMPARISON: September 18, 2019 TECHNIQUE: AP upright portable study FINDINGS: TUBES AND LINES: None. HEART AND MEDIASTINUM: The heart size is normal. The mediastinal contour appears normal for patient age. LUNGS AND PLEURAL SPACES: Possible developing airspace disease at the right base. The left basilar airspace disease and effusion noted previously is no longer present. OSSEOUS STRUCTURES: Age-appropriate appearance. No acute focal finding. IMPRESSION: Suspect developing airspace disease at the right base. Dictated by Hipolito Henson MD @ May 11 2020 12:18PM Signed by Dr. Hipolito Henson @ May 11 2020 12:21PM
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
[2020-05-11 12:40] LABS: BLOOD UREA NITROGEN,BUN 7 mg/dL (7.0-18.0); CARBON DIOXIDE,CO2 22.2 mmol/L (21.0-32.0); CHLORIDE,CL 103 mmol/L (98-107); GLUCOSE RANDOM 84 mg/dL (74-106); POTASSIUM,K 3.9 mmol/L (3.5-5.1); SODIUM,NA 137 mmol/L (136-148)
--- NOTE | 2020-05-11 13:00 | PCM.SN.2 ---
- Free Text/Narrative Note: 12-Lead ECG Interpretation Acquired: 12:13 PM Rhythm: Sinus rhythm Rate: 63 bpm [place]: Normal Intervals: Normal Ectopy: None RV Strain: No obvious RV strain pattern. ST Segments/T-Waves: No notable changes Acute Ischemic Changes: None apparent Interpretation: No STEMI, likely early repolarization pattern.
[2020-05-11 13:02] VITALS: BP 111/70; PULSE 69
== END 2020-05-11 13:14 | disposition home or self-care (01) ==
LOC: MW.ED 11:27
DX: Z04.1 Encounter for examination and observation following transport accident (principal); R42 Dizziness and giddiness; V89.2XXA Person injured in unspecified motor-vehicle accident, traffic, initial encounter
CPT/HCPCS: 36415; 70450; 70450-26; 71045; 71045-26; 72125; 72125-26; 80053; 84484; 85025; 93005; 93010; 99284; 99285-25

== ENCOUNTER 2020-05-21 09:46 | Emergency (ER) | payer SELFPAY ==
[2020-05-21] MEDS ORDERED: Alum Hydrox/Mag Hydrox/Simeth 15 ML, Lidocaine 2% 5 ML PO ONE ×2 (09:54)
[2020-05-21] MEDS ORDERED: Famotidine 20 MG/2 ML SDV IVPUSH ONE (09:54)
[2020-05-21] MEDS ORDERED: Sodium Chloride 0.9% 1,000 ML IV ONE (09:54)
[2020-05-21] MEDS ORDERED: Ondansetron 4 MG/2 ML SDV IVPUSH ONE (09:54)
[2020-05-21] MEDS ORDERED: Sodium Chloride 0.9% 10 ML Syringe FLUSH PRN (09:54)
[2020-05-21] MEDS ORDERED: Sodium Chloride 0.9% 2.5 ML Syringe FLUSH PRN (09:54)
--- NOTE | 2020-05-21 09:54 | EDM.PDOC ---
ED HPI GENERAL MEDICAL PROBLEM - General Chief Complaint: Gastrointestinal Problem Stated Complaint: EMS ARRIVAL Time Seen by Provider: 05/21/20 09:52 Source of Information: Reports: Patient, EMS History Limitations: Reports: No Limitations - History of Present Illness INITIAL COMMENTS - FREE TEXT/NARRATIVE: 39-year-old male past medical history alcohol abuse presents for nausea and vomiting since this morning. Patient states that he is having trouble keeping anything down including water. He denies any associated abdominal pain, shortness of breath, cough, fevers. Notes that last bowel movement was 3 days ago. Denies any history of abdominal surgeries. He has never had an endoscopy or work-up for these issues. He notes that he has not drink alcohol in several days hoping that that would help with the symptoms. - Related Data Allergies Allergy/AdvReac Type Severity Reaction Status Date / Time No Known Allergies Allergy Verified 05/21/20 09:55 Home Meds: Home Meds Pantoprazole Sodium [Protonix] 40 mg PO QPM 28 Days #28 tablet. 05/21/20 [Rx] Sucralfate 1 gm PO TID #30 tablet 05/21/20 [Rx] Past Medical History - Past Health History Medical/Surgical History: Denies Medical/Surgical History Neurological History: Reports: Other (See Below) Other Neuro History: dizziness hx - Infectious Disease History Infectious Disease History: Reports: None - Past Surgical History Neurological Surgical History: Reports: None Social & Family History - Family History Family Medical History: Noncontributory - Caffeine Use Caffeine Use: Reports: None ED ROS GENERAL - Review of Systems Review Of Systems: Comprehensive ROS is negative, except as noted in HPI. ED EXAM, GENERAL - Physical Exam Exam: See Below Exam Limited By: No Limitations General Appearance: Alert, WD/WN, No Apparent Distress Throat/Mouth: Normal Voice, No Airway Compromise Head: Atraumatic, Normocephalic Neck: Normal Inspection Respiratory/Chest: No Respiratory Distress, Lungs Clear, Normal Breath Sounds, No Accessory Muscle Use Cardiovascular: Normal Peripheral Pulses, Regular Rate, Rhythm GI/Abdominal: Soft, Non-Tender Extremities: Normal Inspection Neurological: Alert Psychiatric: Normal Affect, Normal Mood Skin Exam: Warm, Dry, Intact, Normal Color Course - Vital Signs Last Recorded V/S: Last Vital Signs Temp 96.9 F 05/21/20 09:50 Pulse 55 L 05/21/20 10:48 Resp 18 05/21/20 09:50 BP 100/65 05/21/20 10:48 Pulse Ox 98 05/21/20 10:48 - Orders/Labs/Meds Orders: Active Orders 24 hr Category Date Time Status Blood Glucose Check, Bedside [RC] ONETIME Care 05/21/20 09:54 Active CORONAVIRUS COVID-19 PCR PHL Stat Lab 05/21/20 10:25 Received Sodium Chloride 0.9% [Saline Flush] Med 05/21/20 09:54 Active 10 ml FLUSH ASDIRECTED PRN Sodium Chloride 0.9% [Saline Flush] Med 05/21/20 09:54 Active 2.5 ml FLUSH ASDIRECTED PRN Saline Lock Insert [OM.PC] Stat Oth 05/21/20 09:54 Ordered Medication Orders Sodium Chloride (Saline Flush) 10 ml FLUSH ASDIRECTED PRN PRN Reason: Keep Vein Open Last Admin: 05/21/20 10:13 Dose: 10 ml Documented by: ANITA Sodium Chloride (Saline Flush) 2.5 ml FLUSH ASDIRECTED PRN PRN Reason: Keep Vein Open Last Admin: 05/21/20 10:13 Dose: 2.5 ml Documented by: ANIAT Labs: Laboratory Tests 05/21/20 05/21/20 05/21/20 Range/Units 10:15 10:15 10:25 WBC 5.44 (4.0-11.0) K/uL RBC 4.63 (4.50-5.90) M/uL Hgb 14.3 (13.0-17.0) g/dL Hct 41.3 (38.0-50.0) % MCV 89.2 (80.0-98.0) fL MCH 30.9 (27.0-32.0) pg MCHC 34.6 (31.0-37.0) g/dL RDW Std Deviation 42.9 (28.0-62.0) fl RDW Coeff of Dru 13 (11.0-15.0) % Plt Count 101 L (150-400) K/uL MPV 11.50 (7.40-12.00) fL Neut % (Auto) 65.3 (48.0-80.0) % Lymph % (Auto) 27.9 (16.0-40.0) % [place] % (Auto) 5.7 (0.0-15.0) % Eos % (Auto) 0.9 (0.0-7.0) % Baso % (Auto) 0.2 (0.0-1.5) % Neut # (Auto) 3.6 (1.4-5.7) K/uL Lymph # (Auto) 1.5 (0.6-2.4) K/uL [place] # (Auto) 0.3 (0.0-0.8) K/uL Eos # (Auto) 0.1 (0.0-0.7) K/uL Baso # (Auto) 0.0 (0.0-0.1) K/uL Nucleated RBC % 0.0 /100WBC Nucleated RBCs # 0 K/uL Lactate 1.2 (0.20-2.00) mmol/L SARS CoV-2 RNA Rapid JEAN NEGATIVE (NEGATIVE) Meds: Medications Generic Name Dose Route Start Last Admin Trade Name Freq PRN Reason Stop Dose Admin Sodium Chloride 10 ml 05/21/20 09:54 05/21/20 10:13 Saline Flush FLUSH 10 ml ASDIRECTED PRN Administration Keep Vein Open Sodium Chloride 2.5 ml 05/21/20 09:54 05/21/20 10:13 Saline Flush FLUSH 2.5 ml ASDIRECTED PRN Administration Keep Vein Open Discontinued Medications Generic Name Dose Route Start Last Admin Trade Name Freq PRN Reason Stop Dose Admin Al Hydroxide/Mg Hydroxide 15 0 ml 05/21/20 09:54 05/21/20 10:12 ml/ Lidocaine HCl 5 ml PO 05/21/20 09:55 20 each ONETIME ONE Administration Famotidine 20 mg 05/21/20 09:54 05/21/20 10:12 Pepcid IVPUSH 05/21/20 09:55 20 mg ONETIME ONE Administration Sodium Chloride 1,000 mls @ 999 mls/hr 05/21/20 09:54 05/21/20 10:12 Normal Saline IV 05/21/20 10:54 999 mls/hr .Bolus ONE Administration Ondansetron HCl 4 mg 05/21/20 09:54 05/21/20 10:12 Zofran IVPUSH 05/21/20 09:55 4 mg ONETIME ONE Administration - Re-Assessments/Exams Free Text/Narrative Re-Assessment/Exam: 05/21/20 10:11 Patient presents with nausea and vomiting. Will get labs, will treat symptomatically while working up. Will consider CT imaging based on labs and reassessment. Patient symptoms likely secondary to alcoholic gastritis. May require endoscopy, will refer if patient is stable for discharge. 05/21/20 11:17 Covid swab is negative, labs are all unremarkable. They did not transfer appropriately to EMR, but labs were faxed from lab. Patient notes that he is symptomatically feeling better, will p.o. challenge now. Anticipate discharge home with PPI, GI follow-up. Patient may require endoscopy as an outpatient. Departure - Departure Time of Disposition: 11:43 Disposition: Home, Self-Care 01 Condition: Good Clinical Impression: Gastritis Qualifiers: Gastritis type: unspecified gastritis Chronicity: acute Gastritis bleeding: without bleeding Qualified Code(s): K29.00 - Acute gastritis without bleeding - Discharge Information Prescriptions: Pantoprazole Sodium [Protonix] 40 mg PO QPM 28 Days #28 tablet. Sucralfate 1 gm PO TID #30 tablet Instructions: Gastritis, Adult, [id number] Forms: ED Department Discharge Additional Instructions: Your symptoms are suggestive of gastritis. Medication was sent to your pharmacy that can help alleviate symptoms. You should follow-up with a cancer program consultant. They may want to do an endoscopy, which is a procedure where the camera is inserted down your food pipe to look at your stomach. If you are vomiting such that you cannot tolerate food or drink, return to the emergency department. [place] [employer] Drawer (stomach doctor): [facility] Michaela Alcazar, TESHA [phone] The following information is given to patients seen in the emergency department who are being discharged to home. This information is to outline your options for follow-up care. We provide all patients seen in our emergency department with a follow-up referral. The need for follow-up, as well as the timing and circumstances, are variable depending upon the specifics of your emergency department visit. If you don't have a primary care physician on staff, we will provide you with a referral. We always advise you to contact your personal physician following an emergency department visit to inform them of the circumstance of the visit and for follow-up with them and/or the need for any referrals to a consulting specialist. The emergency department will also refer you to a specialist when appropriate. This referral assures that you have the opportunity for follow-up care with a specialist. All of these measure are taken in an effort to provide you with optimal care, which includes your follow-up. Under all circumstances we always encourage you to contact your private physician who remains a resource for coordinating your care. When calling for follow-up care, please make the office aware that this follow-up is from your recent emergency room visit. If for any reason you are refused follow-up, please contact the [facility] Emergency Department at and asked to speak to the emergency department iggy nurse. Please follow up with your primary care physician. If you do not have a primary care physician, see below: [facility] [address] [place] [id number] [facility] [address] [place] [id number] Sepsis Event Note (ED) - Evaluation Sepsis Screening Result: No Definite Risk - Focused Exam Vital Signs: Vital Signs Temp Pulse Resp BP Pulse Ox 05/21/20 10:48 55 L 100/65 98 05/21/20 09:50 96.9 F 69 18 96/70 97 - My Orders Last 24 Hours: My Active Orders 05/21/20 09:54 Blood Glucose Check, Bedside [RC] ONETIME Sodium Chloride 0.9% [Saline Flush] 10 ml FLUSH ASDIRECTED PRN Sodium Chloride 0.9% [Saline Flush] 2.5 ml FLUSH ASDIRECTED PRN Saline Lock Insert [OM.PC] Stat 05/21/20 10:25 CORONAVIRUS COVID-19 PCR PHL Stat - Assessment/Plan Last 24 Hours: My Active Orders 05/21/20 09:54 Blood Glucose Check, Bedside [RC] ONETIME Sodium Chloride 0.9% [Saline Flush] 10 ml FLUSH ASDIRECTED PRN Sodium Chloride 0.9% [Saline Flush] 2.5 ml FLUSH ASDIRECTED PRN Saline Lock Insert [OM.PC] Stat 05/21/20 10:25 CORONAVIRUS COVID-19 PCR PHL Stat
[2020-05-21 10:53] LABS: BLOOD UREA NITROGEN,BUN 7 mg/dL (7.0-18.0); CARBON DIOXIDE,CO2 23.7 mmol/L (21.0-32.0); CHLORIDE,CL 108 mmol/L (98-107); GLUCOSE RANDOM 132 mg/dL (74-106); LIPASE 76 U/L (73-393); POTASSIUM,K 3.5 mmol/L (3.5-5.1); SODIUM,NA 140 mmol/L (136-148)
[2020-05-21 12:21] VITALS: BP 99/52; PULSE 87
== END 2020-05-21 12:10 | disposition home or self-care (01) ==
LOC: MW.ED 09:46
DX: K29.00 Acute gastritis without bleeding (principal); Z20.828 Contact with and (suspected) exposure to other viral communicable diseases
CPT/HCPCS: 36415; 80053; 80307; 83605; 83690; 83735; 85025; 86140; 87635; 96374; 96375; 99284; A9270; J2405; J3490; J7030; 99282; U0002

== ENCOUNTER 2020-06-06 01:35 | Emergency (ER) | payer SELFPAY ==
[2020-06-06] MEDS ORDERED: Sodium Chloride 0.9% 10 ML Syringe FLUSH PRN (01:40)
[2020-06-06] MEDS ORDERED: Lactated Ringers 1,000 ML IV ONE (01:40)
[2020-06-06] MEDS ORDERED: Sodium Chloride 0.9% 2.5 ML Syringe FLUSH PRN (01:40)
--- NOTE | 2020-06-06 01:53 | EDM.PDOC ---
ED HPI GENERAL MEDICAL PROBLEM - General Chief Complaint: Abdominal Pain Stated Complaint: ABDOMINAL PAIN Time Seen by Provider: 06/06/20 01:35 - History of Present Illness INITIAL COMMENTS - FREE TEXT/NARRATIVE: 39-year-old male with a history of gastritis who is been H pylori positive in the past (most recently that I can see in 2014) who is presenting with nausea vomiting. Patient was initially seen for similar symptoms 2 weeks ago. At that time lab work including COVID-19 testing was negative he felt better with symptomatic care and was discharged on a PPI and Carafate. The patient presents tonight due to dizziness and abdominal pain that occurs during the active vomiting which started again this evening. He denies fevers he denies change in bowel habits he denies active chest pain shortness of breath or abdominal pain. He denies current drug or alcohol use. Prior charting references a prior smoking history prior marijuana use and prior heavy alcohol use the most recent documentation in May states that patient recently stopped drinking alcohol. Patient denies exacerbating or alleviating factors radiation or radiation. 0250: The patient is now less symptomatic and is able to better clarify his hi story. He states that he was doing okay until he woke up prior to arrival with vertigo severe nausea and vomiting. No neck pain or stiffness no recent neck injury or manipulation. No chest pain no shortness of breath and abdominal discomfort only during the active vomiting. Abdomen Pain Score (Numeric/FACES): 3 - Related Data Allergies Allergy/AdvReac Type Severity Reaction Status Date / Time No Known Allergies Allergy Verified 06/06/20 01:50 Home Meds: Home Meds Pantoprazole Sodium [Protonix] 40 mg PO QPM 28 Days #28 tablet.dr 05/21/20 [Rx] Sucralfate 1 gm PO TID #30 tablet 05/21/20 [Rx] Meclizine [Antivert] 25 mg PO TID PRN 5 Days #15 tab.chew 06/06/20 [Rx] Past Medical History - Past Health History Medical/Surgical History: Denies Medical/Surgical History Neurological History: Reports: Other (See Below) Other Neuro History: dizziness hx - Infectious Disease History Infectious Disease History: Reports: None - Past Surgical History Neurological Surgical History: Reports: None Social & Family History - Family History Family Medical History: No Pertinent Family History - Caffeine Use Caffeine Use: Reports: None ED ROS GENERAL - Review of Systems Review Of Systems: See Below Free Text/Narrative/Comment: General: No fever. Skin: No rash. Eyes: No vision problems. ENT: No sore throat. Neck: No neck stiffness. Respiratory: No shortness of breath. Cardiac: No chest pain. Gastrointestinal: Per HPI Urinary: No dysuria. Musculoskeletal: No myalgias/arthralgias. Neurologic: No headache. ED EXAM, GENERAL - Physical Exam Exam: See Below Free Text/Narrative:: General Appearance: No acute distress, appears comfortable Skin: No rash HEENT: Normocephalic/atraumatic, sclera anicteric, mucous membranes dry Neck: Normal range of motion Chest and Lungs: Bilateral breath sounds, clear to auscultation Cardiovascular: Regular rate and rhythm, no murmur Abdomen: Soft, non-tender Back: Normal Musculoskeletal: No edema or tenderness Neurologic: Awake, alert, no obvious deficits, moving all extremities Psychiatric: Appropriate, cooperative #1 Interpretation EKG Date: 06/06/20 Time: 01:56 EKG Interpretation Comments: EKG demonstrates normal sinus rhythm with a rate of 60 occasional PVCs some changes that could indicate benign early repole with mild anterior J-point elevation but no other ST elevations and no ST depressions not concerning for acute ischemia QTC normal at 397 Course - Vital Signs Last Recorded V/S: Last Vital Signs Temp 98.5 F 06/06/20 01:35 Pulse 72 06/06/20 02:20 Resp 18 06/06/20 02:20 BP 127/77 06/06/20 02:20 Pulse Ox 96 06/06/20 02:20 - Orders/Labs/Meds Orders: Active Orders 24 hr Category Date Time Status Saline Lock Insert [OM.PC] Stat Oth 06/06/20 01:40 Ordered Labs: Laboratory Tests 06/06/20 06/06/20 06/06/20 Range/Units 01:46 01:46 01:46 WBC 6.19 (4.0-11.0) K/uL RBC 5.31 (4.50-5.90) M/uL Hgb 16.3 (13.0-17.0) g/dL Hct 46.5 (38.0-50.0) % MCV 87.6 (80.0-98.0) fL MCH 30.7 (27.0-32.0) pg MCHC 35.1 (31.0-37.0) g/dL RDW Std Deviation 40.9 (28.0-62.0) fl RDW Coeff of Dru 13 (11.0-15.0) % Plt Count 109 L (150-400) K/uL MPV 11.70 (7.40-12.00) fL Neut % (Auto) 32.4 L (48.0-80.0) % Lymph % (Auto) 56.2 H (16.0-40.0) % [place] % (Auto) 9.0 (0.0-15.0) % Eos % (Auto) 2.1 (0.0-7.0) % Baso % (Auto) 0.3 (0.0-1.5) % Neut # (Auto) 2.0 (1.4-5.7) K/uL Lymph # (Auto) 3.5 H (0.6-2.4) K/uL [place] # (Auto) 0.6 (0.0-0.8) K/uL Eos # (Auto) 0.1 (0.0-0.7) K/uL Baso # (Auto) 0.0 (0.0-0.1) K/uL Nucleated RBC % 0.0 /100WBC Nucleated RBCs # 0 K/uL Lactate 0.8 (0.20-2.00) mmol/L Sodium 138 (136-148) mmol/L Potassium 3.3 L (3.5-5.1) mmol/L Chloride 102 (98-107) mmol/L Carbon Dioxide 24.9 (21.0-32.0) mmol/L BUN 12 (7.0-18.0) mg/dL Creatinine 0.9 (0.8-1.3) mg/dL Est Cr Clr Drug Dosing 129.78 mL/min Estimated GFR (MDRD) > 60.0 ml/min Glucose 112 H (74-106) mg/dL Calcium 8.8 (8.5-10.1) mg/dL Magnesium (1.8-2.4) mg/dL Total Bilirubin 0.5 (0.2-1.0) mg/dL AST 24 (15-37) IU/L ALT 47 (14-63) IU/L Alkaline Phosphatase 87 (46-116) U/L Troponin I < 0.050 (0.000-0.056) ng/mL Total Protein 7.2 (6.4-8.2) g/dL Albumin 3.8 (3.4-5.0) g/dL Globulin 3.4 (2.6-4.0) g/dL Albumin/Globulin Ratio 1.1 (0.9-1.6) Lipase 214 (73-393) U/L Ethyl Alcohol <3 mg/dL 06/06/20 Range/Units 01:46 WBC (4.0-11.0) K/uL RBC (4.50-5.90) M/uL Hgb (13.0-17.0) g/dL Hct (38.0-50.0) % MCV (80.0-98.0) fL MCH (27.0-32.0) pg MCHC (31.0-37.0) g/dL RDW Std Deviation (28.0-62.0) fl RDW Coeff of Dru (11.0-15.0) % Plt Count (150-400) K/uL MPV (7.40-12.00) fL Neut % (Auto) (48.0-80.0) % Lymph % (Auto) (16.0-40.0) % [place] % (Auto) (0.0-15.0) % Eos % (Auto) (0.0-7.0) % Baso % (Auto) (0.0-1.5) % Neut # (Auto) (1.4-5.7) K/uL Lymph # (Auto) (0.6-2.4) K/uL [place] # (Auto) (0.0-0.8) K/uL Eos # (Auto) (0.0-0.7) K/uL Baso # (Auto) (0.0-0.1) K/uL Nucleated RBC % /100WBC Nucleated RBCs # K/uL Lactate (0.20-2.00) mmol/L Sodium (136-148) mmol/L Potassium (3.5-5.1) mmol/L Chloride (98-107) mmol/L Carbon Dioxide (21.0-32.0) mmol/L BUN (7.0-18.0) mg/dL Creatinine (0.8-1.3) mg/dL Est Cr Clr Drug Dosing mL/min Estimated GFR (MDRD) ml/min Glucose (74-106) mg/dL Calcium (8.5-10.1) mg/dL Magnesium 1.9 (1.8-2.4) mg/dL Total Bilirubin (0.2-1.0) mg/dL AST (15-37) IU/L ALT (14-63) IU/L Alkaline Phosphatase (46-116) U/L Troponin I (0.000-0.056) ng/mL Total Protein (6.4-8.2) g/dL Albumin (3.4-5.0) g/dL Globulin (2.6-4.0) g/dL Albumin/Globulin Ratio (0.9-1.6) Lipase (73-393) U/L Ethyl Alcohol mg/dL Meds: Medications Discontinued Medications Generic Name Dose Route Start Last Admin Trade Name Freq PRN Reason Stop Dose Admin Lactated Ringer's 1,000 mls @ 999 mls/hr 06/06/20 01:40 06/06/20 01:47 Ringers, Lactated IV 06/06/20 02:40 999 mls/hr .BOLUS ONE Administration Lactated Ringer's 1,000 mls @ 999 mls/hr 06/06/20 02:55 06/06/20 02:56 Ringers, Lactated IV 999 mls/hr .BOLUS KEVEN Administration Meclizine HCl 25 mg 06/06/20 02:12 06/06/20 02:27 Antivert PO 06/06/20 02:13 25 mg ONETIME ONE Administration Sodium Chloride 10 ml 06/06/20 01:40 06/06/20 01:48 Saline Flush FLUSH 10 ml ASDIRECTED PRN Administration Keep Vein Open Sodium Chloride 2.5 ml 06/06/20 01:40 06/06/20 01:47 Saline Flush FLUSH 2.5 ml ASDIRECTED PRN Administration Keep Vein Open Departure - Departure Time of Disposition: 04:30 Disposition: Home, Self-Care 01 Condition: Good Clinical Impression: Vertigo - Discharge Information *PRESCRIPTION DRUG MONITORING PROGRAM REVIEWED*: Not Applicable *COPY OF PRESCRIPTION DRUG MONITORING REPORT IN PATIENT PREM: Not Applicable Prescriptions: Meclizine [Antivert] 25 mg PO TID PRN 5 Days #15 tab.chew PRN Reason: Dizziness Instructions: Vertigo, [id number] Referrals: [facility] [Outside] - 3 Days Forms: ED Department Discharge Additional Instructions: Your vertigo should improve on its own over the next few days. You can use the meclizine as needed to help control your symptoms. It is important that you follow-up with your primary care doctor at the [facility]. If your symptoms worsen or any new symptoms develop that concern you please call your doctor or return to the emergency department. The following information is given to patients seen in the emergency department who are being discharged to home. This information is to outline your options for follow-up care. We provide all patients seen in our emergency department with a follow-up referral. The need for follow-up, as well as the timing and circumstances, are variable depending upon the specifics of your emergency department visit. If you don't have a primary care physician on staff, we will provide you with a referral. We always advise you to contact your personal physician following an emergency department visit to inform them of the circumstance of the visit and for follow-up with them and/or the need for any referrals to a consulting specialist. The emergency department will also refer you to a specialist when appropriate. This referral assures that you have the opportunity for follow-up care with a specialist. All of these measure are taken in an effort to provide you with optimal care, which includes your follow-up. Under all circumstances we always encourage you to contact your private physician who remains a resource for coordinating your care. When calling for follow-up care, please make the office aware that this follow-up is from your recent emergency room visit. If for any reason you are refused follow-up, please contact the [facility] Emergency Department at and asked to speak to the emergency department charge nurse. Sepsis Event Note (ED) - Focused Exam Vital Signs: Vital Signs Temp Pulse Resp BP Pulse Ox 06/06/20 02:20 72 18 127/77 96 06/06/20 01:35 98.5 F 71 18 126/71 96 - My Orders Last 24 Hours: My Active Orders 06/06/20 01:40 Saline Lock Insert [OM.PC] Stat - Assessment/Plan Last 24 Hours: My Active Orders 06/06/20 01:40 Saline Lock Insert [OM.PC] Stat Assessment:: 39-year-old male presenting with dizziness abdominal pain and vomiting. Patient's abdominal exam is benign very low concern for CAD but given age EKG and troponin ordered. Certainly gastritis and H. pylori infection are considerations however patient has been on appropriate PPI and Carafate and is again symptomatic. Is possible that he again has H. pylori and requires antibiotic therapy. However, this will not be something that we can ascertain this evening. Biliary pathology pancreatic pathology considered I think less likely given the lack of abdominal tenderness but relevant labs are ordered. Patient is without prior abdominal surgeries he continues to have normal bowel movements I do not have a clinical concern for bowel obstruction. Patient is afebrile with normal vital signs though he appears dehydrated he does not appear septic. IV fluids will be given patient was already given IV Zofran by EMS. Will reassess after fluids and blood work. 0255: Patient's labs are good. He is having relatively frequent PVCs and so magnesium added to the blood in the lab. He is feeling significantly improved after Antivert was added for his complaint of vertigo. He has no risk factors for vertebral artery dissection he is young and otherwise well I do not have a concern for stroke in him. His neurologic exam is otherwise unremarkable. He still appears dehydrated we will give another liter of fluid. I am hopeful for continued symptomatic improvement and discharged with follow-up with his primary care provider. Pt with no cough or pulmonary sx that would suggest clinical relevance for potential CXR finding. 0415: Pt's sx con't to improve. Ambulatory with a stready gait. Pt discharged with f/u.
[2020-06-06] MEDS ORDERED: Meclizine 25 MG Tab PO ONE (02:12)
[2020-06-06 02:24] LABS: BLOOD UREA NITROGEN,BUN 12 mg/dL (7.0-18.0); GLUCOSE RANDOM 112 mg/dL (74-106); LIPASE 214 U/L (73-393)
[2020-06-06 02:30] VITALS: BP 127/77; PULSE 72
[2020-06-06 02:42] LABS: CARBON DIOXIDE,CO2 24.9 mmol/L (21.0-32.0); CHLORIDE,CL 102 mmol/L (98-107); POTASSIUM,K 3.3 mmol/L (3.5-5.1); SODIUM,NA 138 mmol/L (136-148)
[2020-06-06] MEDS ORDERED: Lactated Ringers 1,000 ML IV SCH (02:55)
--- NOTE | 2020-06-06 03:02 | CR ---
Indication: Vomiting Technique: Chest 1 view Comparison: 05/11/2020 Findings/Impression: Cardiovascular and mediastinum: Heart size and vasculature are normal in caliber and appearance. Mediastinum is within normal limits. Lungs and pleural space: No consolidation. Apparent small interstitial opacities in the left base which could be partially related to superimposition of shadows. Correlate clinically to exclude small evolving infiltrates, and follow up. An apparent small left pleural effusion. No pneumothorax seen. Bones and soft tissues: No significant change. Dictated by Paulie eHrnandez MD @ Jun 06 2020 2:58AM Signed by Dr. Paulie Hernandez @ Jun 06 2020 3:01AM
== END 2020-06-06 04:35 | disposition home or self-care (01) ==
LOC: MW.ED 01:35
DX: R42 Dizziness and giddiness (principal)
CPT/HCPCS: 36415; 71045; 80053; 80307; 83605; 83690; 83735; 84484; 85025; 93005; 99285; A9270; J7120; 93010; 99283

== ENCOUNTER 2020-06-10 04:49 | Emergency (ER) | payer SELFPAY ==
--- NOTE | 2020-06-10 04:51 | EDM.PDOC ---
ED HPI GENERAL MEDICAL PROBLEM - General Stated Complaint: DIZZY AND VOMITING Time Seen by Provider: 06/10/20 04:51 Source of Information: Reports: Patient History Limitations: Reports: No Limitations - History of Present Illness INITIAL COMMENTS - FREE TEXT/NARRATIVE: 39-year-old male presents with acute onset room spinning sensation at 4 AM. Dizziness was severe and woke him up from his sleep. Associated with nausea and vomiting. He was seen here on 06/06 for dizziness and was prescribed meclizine. He took meclizine today with no relief of his symptoms. 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 After vomiting he started noiticing right-sided chest pain. He admits to feeling headache. Denies fever, chills, cough. ROS: 10-point review of systems, other than pertinent positives and negatives as stated per HPI, is otherwise negative Past medical history: No additional pertinent history Past Surgical history: No additional pertinent history Social history: No additional pertinent history Family history: No additional pertinent history PHYSICAL EXAM General: AOx4, GCS = 15, moderate distress HEENT: dry mucous membrane Neck: supple, no meningismus, no Kernig or Brudzinski Cardiac: S1S2 RRR Respiratory: CTAB, no crackles or rales, no wheezing Abdomen: Soft, mild epigastric ttp, no rebound or guarding, nondistended, no pulsatile mass. Back: nontender Musculoskeletal: NVI distally, no deformity Neuro: No focal deficits, horizontal nystagmus. - Related Data Allergies Allergy/AdvReac Type Severity Reaction Status Date / Time No Known Allergies Allergy Verified 06/10/20 05:08 Home Meds: Home Meds Pantoprazole Sodium [Protonix] 40 mg PO QPM 28 Days #28 tablet. 05/21/20 [Rx] Sucralfate 1 gm PO TID #30 tablet 05/21/20 [Rx] Meclizine [Antivert] 25 mg PO TID PRN 5 Days #15 tab.chew 06/06/20 [Rx] Past Medical History - Past Health History Medical/Surgical History: Denies Medical/Surgical History HEENT History: Reports: None Cardiovascular History: Reports: None Respiratory History: Reports: None Gastrointestinal History: Reports: None Genitourinary History: Reports: None Musculoskeletal History: Reports: None Neurological History: Reports: Other (See Below) Other Neuro History: dizziness hx Psychiatric History: Reports: None Endocrine/Metabolic History: Reports: None Insulin Pump Model and Diesel Powerplant Supervisor: None Hematologic History: Reports: None Immunologic History: Reports: None Oncologic (Cancer) History: Reports: None Dermatologic History: Reports: None - Infectious Disease History Infectious Disease History: Reports: None - Past Surgical History Neurological Surgical History: Reports: None Social & Family History - Family History Family Medical History: No Pertinent Family History - Caffeine Use Caffeine Use: Reports: None ED ROS GENERAL - Review of Systems Review Of Systems: See Below (see dictation) ED EXAM, GENERAL - Physical Exam Exam: See Below (see dictation) Exam Limited By: Language Barrier #1 Interpretation EKG Interpretation Comments: Heart rate = 72 bpm, normal sinus rhythm, normal QRS interval, no STEMI. EKG and rhythm strip interpreted by me at 0455 Course - Vital Signs Last Recorded V/S: Last Vital Signs Temp 98.9 F 06/10/20 05:09 Pulse 62 06/10/20 06:45 Resp 18 06/10/20 06:45 BP 105/64 06/10/20 06:45 Pulse Ox 96 06/10/20 06:45 - Orders/Labs/Meds Orders: Active Orders 24 hr Category Date Time Status Cardiac Monitoring [RC] . DIRECTED Care 06/10/20 05:03 Active EKG Documentation Completion [RC] STAT Care 06/10/20 05:04 Active Pulse Oximetry [RC] ASDIRECTED Care 06/10/20 05:03 Active PROCALCITONIN [REF] Stat Lab 06/10/20 05:20 Received Sodium Chloride 0.9% [Saline Flush] Med 06/10/20 05:03 Active 10 ml FLUSH ASDIRECTED PRN Sodium Chloride 0.9% [Saline Flush] Med 06/10/20 05:03 Active 2.5 ml FLUSH ASDIRECTED PRN Saline Lock Insert [OM.PC] Stat Oth 11/22/20 05:03 Ordered Medication Orders Sodium Chloride (Saline Flush) 10 ml FLUSH ASDIRECTED PRN PRN Reason: Keep Vein Open Sodium Chloride (Saline Flush) 2.5 ml FLUSH ASDIRECTED PRN PRN Reason: Keep Vein Open Labs: Laboratory Tests 06/10/20 06/10/20 06/10/20 Range/Units 05:20 05:20 05:20 WBC 7.03 (4.0-11.0) K/uL RBC 5.34 (4.50-5.90) M/uL Hgb 16.7 (13.0-17.0) g/dL Hct 46.8 (38.0-50.0) % MCV 87.6 (80.0-98.0) fL MCH 31.3 (27.0-32.0) pg MCHC 35.7 (31.0-37.0) g/dL RDW Std Deviation 40.9 (28.0-62.0) fl RDW Coeff of Dru 13 (11.0-15.0) % Plt Count 108 L (150-400) K/uL MPV 11.30 (7.40-12.00) fL Neut % (Auto) 27.1 L (48.0-80.0) % Lymph % (Auto) 60.2 H (16.0-40.0) % [place] % (Auto) 10.4 (0.0-15.0) % Eos % (Auto) 2.0 (0.0-7.0) % Baso % (Auto) 0.3 (0.0-1.5) % Neut # (Auto) 1.9 (1.4-5.7) K/uL Lymph # (Auto) 4.2 H (0.6-2.4) K/uL [place] # (Auto) 0.7 (0.0-0.8) K/uL Eos # (Auto) 0.1 (0.0-0.7) K/uL Baso # (Auto) 0.0 (0.0-0.1) K/uL Nucleated RBC % 0.0 /100WBC Nucleated RBCs # 0 K/uL INR 0.99 Lactate (0.20-2.00) mmol/L Sodium 140 (136-148) mmol/L Potassium 3.5 (3.5-5.1) mmol/L Chloride 105 (98-107) mmol/L Carbon Dioxide 27.1 (21.0-32.0) mmol/L BUN 10 (7.0-18.0) mg/dL Creatinine 1.0 (0.8-1.3) mg/dL Est Cr Clr Drug Dosing TNP Estimated GFR (MDRD) > 60.0 ml/min Glucose 91 (74-106) mg/dL Calcium 9.2 (8.5-10.1) mg/dL Phosphorus 2.7 (2.6-4.7) mg/dL Magnesium 2.0 (1.8-2.4) mg/dL Ferritin (26-388) ng/mL Total Bilirubin 0.9 (0.2-1.0) mg/dL AST 18 (15-37) IU/L ALT 41 (14-63) IU/L Alkaline Phosphatase 90 (46-116) U/L Lactate Dehydrogenase (81-234) U/L Creatine Kinase 164 (26-308) U/L Troponin I < 0.050 (0.000-0.056) ng/mL C-Reactive Protein < 0.20 (0.00-0.90) mg/dL Total Protein 7.5 (6.4-8.2) g/dL Albumin 4.0 (3.4-5.0) g/dL Globulin 3.5 (2.6-4.0) g/dL Albumin/Globulin Ratio 1.1 (0.9-1.6) Lipase 102 (73-393) U/L Ethyl Alcohol < 3.0 mg/dL SARS CoV-2 RNA Rapid JEAN (NEGATIVE) 06/10/20 06/10/20 06/10/20 Range/Units 05:20 05:20 05:20 WBC (4.0-11.0) K/uL RBC (4.50-5.90) M/uL Hgb (13.0-17.0) g/dL Hct (38.0-50.0) % MCV (80.0-98.0) fL MCH (27.0-32.0) pg MCHC (31.0-37.0) g/dL RDW Std Deviation (28.0-62.0) fl RDW Coeff of Dru (11.0-15.0) % Plt Count (150-400) K/uL MPV (7.40-12.00) fL Neut % (Auto) (48.0-80.0) % Lymph % (Auto) (16.0-40.0) % [place] % (Auto) (0.0-15.0) % Eos % (Auto) (0.0-7.0) % Baso % (Auto) (0.0-1.5) % Neut # (Auto) (1.4-5.7) K/uL Lymph # (Auto) (0.6-2.4) K/uL [place] # (Auto) (0.0-0.8) K/uL Eos # (Auto) (0.0-0.7) K/uL Baso # (Auto) (0.0-0.1) K/uL Nucleated RBC % /100WBC Nucleated RBCs # K/uL INR Lactate 0.7 (0.20-2.00) mmol/L Sodium (136-148) mmol/L Potassium (3.5-5.1) mmol/L Chloride (98-107) mmol/L Carbon Dioxide (21.0-32.0) mmol/L BUN (7.0-18.0) mg/dL Creatinine (0.8-1.3) mg/dL Est Cr Clr Drug Dosing Estimated GFR (MDRD) ml/min Glucose (74-106) mg/dL Calcium (8.5-10.1) mg/dL Phosphorus (2.6-4.7) mg/dL Magnesium (1.8-2.4) mg/dL Ferritin 181 (26-388) ng/mL Total Bilirubin (0.2-1.0) mg/dL AST (15-37) IU/L ALT (14-63) IU/L Alkaline Phosphatase (46-116) U/L Lactate Dehydrogenase 125 (81-234) U/L Creatine Kinase (26-308) U/L Troponin I (0.000-0.056) ng/mL C-Reactive Protein (0.00-0.90) mg/dL Total Protein (6.4-8.2) g/dL Albumin (3.4-5.0) g/dL Globulin (2.6-4.0) g/dL Albumin/Globulin Ratio (0.9-1.6) Lipase (73-393) U/L Ethyl Alcohol mg/dL SARS CoV-2 RNA Rapid JEAN (NEGATIVE) 06/10/20 Range/Units 06:01 WBC (4.0-11.0) K/uL RBC (4.50-5.90) M/uL Hgb (13.0-17.0) g/dL Hct (38.0-50.0) % MCV (80.0-98.0) fL MCH (27.0-32.0) pg MCHC (31.0-37.0) g/dL RDW Std Deviation (28.0-62.0) fl RDW Coeff of Dru (11.0-15.0) % Plt Count (150-400) K/uL MPV (7.40-12.00) fL Neut % (Auto) (48.0-80.0) % Lymph % (Auto) (16.0-40.0) % [place] % (Auto) (0.0-15.0) % Eos % (Auto) (0.0-7.0) % Baso % (Auto) (0.0-1.5) % Neut # (Auto) (1.4-5.7) K/uL Lymph # (Auto) (0.6-2.4) K/uL [place] # (Auto) (0.0-0.8) K/uL Eos # (Auto) (0.0-0.7) K/uL Baso # (Auto) (0.0-0.1) K/uL Nucleated RBC % /100WBC Nucleated RBCs # K/uL INR Lactate (0.20-2.00) mmol/L Sodium (136-148) mmol/L Potassium (3.5-5.1) mmol/L Chloride (98-107) mmol/L Carbon Dioxide (21.0-32.0) mmol/L BUN (7.0-18.0) mg/dL Creatinine (0.8-1.3) mg/dL Est Cr Clr Drug Dosing Estimated GFR (MDRD) ml/min Glucose (74-106) mg/dL Calcium (8.5-10.1) mg/dL Phosphorus (2.6-4.7) mg/dL Magnesium (1.8-2.4) mg/dL Ferritin (26-388) ng/mL Total Bilirubin (0.2-1.0) mg/dL AST (15-37) IU/L ALT (14-63) IU/L Alkaline Phosphatase (46-116) U/L Lactate Dehydrogenase (81-234) U/L Creatine Kinase (26-308) U/L Troponin I (0.000-0.056) ng/mL C-Reactive Protein (0.00-0.90) mg/dL Total Protein (6.4-8.2) g/dL Albumin (3.4-5.0) g/dL Globulin (2.6-4.0) g/dL Albumin/Globulin Ratio (0.9-1.6) Lipase (73-393) U/L Ethyl Alcohol mg/dL SARS CoV-2 RNA Rapid JEAN NEGATIVE (NEGATIVE) Meds: Medications Generic Name Dose Route Start Last Admin Trade Name Freq PRN Reason Stop Dose Admin Sodium Chloride 10 ml 06/10/20 05:03 Saline Flush FLUSH ASDIRECTED PRN Keep Vein Open Sodium Chloride 2.5 ml 06/10/20 05:03 Saline Flush FLUSH ASDIRECTED PRN Keep Vein Open Discontinued Medications Generic Name Dose Route Start Last Admin Trade Name Freq PRN Reason Stop Dose Admin Diazepam 5 mg 06/10/20 05:14 06/10/20 05:52 Valium IVPUSH 06/10/20 05:15 5 mg ONETIME ONE Administration Lactated Ringer's 1,000 mls @ 999 mls/hr 06/10/20 05:03 06/10/20 05:52 Ringers, Lactated IV 06/10/20 06:03 999 mls/hr .BOLUS ONE Administration Ondansetron HCl 4 mg 06/10/20 05:03 06/10/20 05:52 Zofran IVPUSH 06/10/20 05:04 4 mg ONETIME ONE Administration - Re-Assessments/Exams Free Text/Narrative Re-Assessment/Exam: 06/10/20 06:50 After IV fluids and IV Valium and Zofran in the ER, his dizziness improved and is currently stable for discharge. I performed a repeat exam and did not appreciate new abnormal findings. Patient exhibits normal vital signs and has a normal gait on road test. I instructed him to perform the Isaiah maneuver at home as instructed in my discharge instructions. i advised the patient to return to the ER for reevaluation if symptoms worsened, including fever, worsening pain, or any other worrisome symptoms. I instructed the patient to follow up with their PCP within 2-3 days. MEDICAL DECISION MAKING: I reviewed the patients past medical records, lab and radiographic findings. I discussed the case with the patient. My differential diagnosis included: bppv, vertigo, labyrinthitis, meniere's disease. DOubt VBI or vertebral artery dissection or meningitis. Patient's symptoms today are consistent with peripheral vertigo. I do not suspect central etiology, stroke, SAH, meningitis, or any severe infection. Patient's dizziness resolved with ED treatment, and there were no other focal neurological findings or additional complaints. Pt well appearing, ambulatory on own in ED w/o difficulty. I instructed the patient to return immediately for severe, persistent dizziness, vomiting, fever, focal weakness, change in mental status, headache or other concerns. Pt voiced under-standing and questions answered. Departure - Departure Time of Disposition: 06:54 Disposition: Home, Self-Care 01 Condition: Good Clinical Impression: Dizziness, Vertigo - Discharge Information *PRESCRIPTION DRUG MONITORING PROGRAM REVIEWED*: Not Applicable *COPY OF PRESCRIPTION DRUG MONITORING REPORT IN PATIENT PREM: Not Applicable Instructions: How to Perform the Isaiah Maneuver, Dizziness, [id number] Referrals: PCP,None [Primary Care Provider] - 1 Week Forms: ED Department Discharge Additional Instructions: The need for follow-up, as well as the timing and circumstances, are variable depending upon the specifics of your emergency department visit. If you don't have a primary care physician on staff, we will provide you with a referral. We always advise you to contact your personal physician following an emergency department visit to inform them of the circumstance of the visit and for follow-up with them and/or the need for any referrals to a consulting specialist. The emergency department will also refer you to a specialist when appropriate. This referral assures that you have the opportunity for follow-up care with a specialist. All of these measure are taken in an effort to provide you with optimal care, which includes your follow-up. Under all circumstances we always encourage you to contact your private physician who remains a resource for coordinating your care. When calling for follow-up care, please make the office aware that this follow-up is from your recent emergency room visit. If for any reason you are refused follow-up, please contact the [facility] Emergency Department at and asked to speak to the emergency department charge nurse. If you do not have a primary care doctor, please follow up with the clinics below within 3-5 days. [facility] [address] [place] [id number] [facility] [address] [place] [id number] Sepsis Event Note (ED) - Focused Exam Vital Signs: Vital Signs Temp Pulse Resp BP Pulse Ox 06/10/20 06:45 62 18 105/64 96 06/10/20 05:59 73 18 125/80 98 06/10/20 05:09 98.9 F 70 16 119/84 99 - My Orders Last 24 Hours: My Active Orders 06/10/20 05:03 Cardiac Monitoring [RC] . DIRECTED Pulse Oximetry [RC] ASDIRECTED Sodium Chloride 0.9% [Saline Flush] 10 ml FLUSH ASDIRECTED PRN Sodium Chloride 0.9% [Saline Flush] 2.5 ml FLUSH ASDIRECTED PRN Saline Lock Insert [OM.PC] Stat 06/10/20 05:04 EKG Documentation Completion [RC] STAT 06/10/20 05:20 PROCALCITONIN [REF] Stat - Assessment/Plan Last 24 Hours: My Active Orders 06/10/20 05:03 Cardiac Monitoring [RC] . DIRECTED Pulse Oximetry [RC] ASDIRECTED Sodium Chloride 0.9% [Saline Flush] 10 ml FLUSH ASDIRECTED PRN Sodium Chloride 0.9% [Saline Flush] 2.5 ml FLUSH ASDIRECTED PRN Saline Lock Insert [OM.PC] Stat 06/10/20 05:04 EKG Documentation Completion [RC] STAT 06/10/20 05:20 PROCALCITONIN [REF] Stat
[2020-06-10] MEDS ORDERED: Sodium Chloride 0.9% 2.5 ML Syringe FLUSH PRN (05:03)
[2020-06-10] MEDS ORDERED: Sodium Chloride 0.9% 10 ML Syringe FLUSH PRN (05:03)
[2020-06-10] MEDS ORDERED: Ondansetron 4 MG/2 ML SDV IVPUSH ONE (05:03)
[2020-06-10] MEDS ORDERED: Lactated Ringers 1,000 ML IV ONE (05:03)
[2020-06-10 05:44] LABS: BLOOD UREA NITROGEN,BUN 10 mg/dL (7.0-18.0); CARBON DIOXIDE,CO2 27.1 mmol/L (21.0-32.0); CHLORIDE,CL 105 mmol/L (98-107); GLUCOSE RANDOM 91 mg/dL (74-106); LIPASE 102 U/L (73-393); POTASSIUM,K 3.5 mmol/L (3.5-5.1); SODIUM,NA 140 mmol/L (136-148)
--- NOTE | 2020-06-10 06:35 | CT ---
INDICATION: Dizziness with nausea and vomiting. COMPARISON: 05/11/2020 TECHNIQUE: CT examination of the head was performed with 3 mm thick axial, sagittal, and coronal sections without intravenous contrast. Images were obtained from the vertex of the skull through the skull base, and I examined the images with the brain and bone windows. Please note that all CT scans at this facility use dose modulation, iterative reconstruction, and/or weight-based dosing when appropriate to reduce radiation dose to as low as reasonably achievable. FINDINGS: The brain is normal in appearance for the patient`s age on today`s study, with no sign of mass lesion, mass effect, hemorrhage, or edema. The ventricles and sulci are normal in appearance for the patient`s age. The visualized portions of the orbits are normal in appearance. There is no change in mild chronic bilateral ethmoid sinusitis. The rest of the visualized paranasal sinuses and mastoids are clear. The osseous structures are normal in their appearance with no sign of abnormality in the skull base or calvarium. There has been no interval change. IMPRESSION: Normal noncontrast CT appearance of the brain for the patient`s age. Stable mild chronic bilateral ethmoid sinusitis. Please note that all CT scans at this facility use dose modulation, iterative reconstruction, and/or weight-based dosing when appropriate to reduce radiation dose to as low as reasonably achievable. Dictated by Stevenson Peña MD @ Jun 10 2020 6:32AM Signed by Dr. Stevenson Peña @ Jun 10 2020 6:35AM
--- NOTE | 2020-06-10 06:42 | CT ---
INDICATION: Right-sided chest pain. Dizziness, nausea, vomiting. COMPARISON: Chest radiograph from 06/06/2020 TECHNIQUE: CT examination of the chest was performed without contrast enhancement. 3 mm thick axial sections were obtained from above the apices of the lungs to the lung bases. Please note that all CT scans at this facility use dose modulation, iterative reconstruction, and/or weight-based dosing when appropriate to reduce radiation dose to as low as reasonably achievable. FINDINGS: There is mild patchy and linear density in the posterior lung bases consistent with atelectasis. There is mild diffuse ground-glass pulmonary fibrosis. There is mild bilateral centrilobular emphysema with an apical predominance. There is no sign of mediastinal or hilar mass or adenopathy. Sensitivity is limited by lack of contrast enhancement. There is minimal proximal LAD coronary calcification. The heart is otherwise normal in appearance for the patient`s age, as are the aorta and other ascending great vessels. There is no sign of supraclavicular or axillary mass or adenopathy. The visualized superior liver, spleen, pancreas, right kidney, and adrenals are normal in appearance. There is minimal nonobstructive nephrolithiasis on the left, with a tiny 2 millimeter calculus seen in the interpolar left kidney. There is mild anterior wedging of the T12 vertebral body representing a mild compression fracture of indeterminate age. There is no sign of any paraspinous soft tissue swelling to suggest that this is an acute fracture. The osseous structures are otherwise normal in appearance for the patient`s age. IMPRESSION: Nothing seen to correlate with the history of right-sided chest pain. No sign of pneumothorax or chest wall injury. Mild dependent atelectasis in the posterior lung bases. Mild diffuse ground-glass pulmonary fibrosis with mild bilateral centrilobular emphysema with an upper lobe predominance. Minimal nonobstructive left nephrolithiasis. Please note that all CT scans at this facility use dose modulation, iterative reconstruction, and/or weight-based dosing when appropriate to reduce radiation dose to as low as reasonably achievable. Dictated by Stevenson Peña MD @ Jun 10 2020 6:35AM Signed by Dr. Stevenson Peña @ Jun 10 2020 6:40AM
[2020-06-10 06:46] VITALS: BP 105/64; PULSE 62
--- NOTE | 2020-06-10 06:46 | CT ---
INDICATION: Abdominal pain. Right-sided chest pain. COMPARISON: None available TECHNIQUE: CT examination of the abdomen and pelvis was performed without contrast enhancement using 3 mm thick axial sections from the lung bases through the pubic symphysis. Oral contrast was not administered. Please note that all CT scans at this facility use dose modulation, iterative reconstruction, and/or weight-based dosing when appropriate to reduce radiation dose to as low as reasonably achievable. FINDINGS: In the abdomen, the unenhanced liver, spleen, pancreas, and adrenals are normal in appearance. There is minimal left nephrolithiasis with a 2 millimeter nonobstructive calculus in the interpolar left kidney. There is no sign of additional renal or ureteral calculi. The unenhanced kidneys are otherwise normal in appearance. The gallbladder is normal in appearance. The abdominal aorta is normal in caliber with no sign of dilatation. There is no sign of retroperitoneal mass or adenopathy. The stomach, loops of small bowel, and colon in the abdomen are normal in appearance. In the pelvis, the appendix is normal in appearance with no sign of inflammatory process. The loops of small bowel and colon in the pelvis are normal in appearance. The prostate is normal in appearance. The urinary bladder is normal in appearance. There is no sign of pelvic or inguinal mass or adenopathy. There is no sign of free air or free fluid in the abdomen or pelvis. There is mild linear and patchy density in the posterior lung bases consistent with atelectasis. There is moderate anterior angulation of the distal 2 coccygeal segments consistent with an old, healed coccygeal fracture. There is mild anterior wedging of the T12 through L2 vertebral bodies, old mild compression fractures versus anatomic variant. IMPRESSION: Nothing seen to explain the patient`s abdominal pain. CT of the abdomen shows minimal nonobstructive left nephrolithiasis. Normal CT of the pelvis without contrast. Please note that all CT scans at this facility use dose modulation, iterative reconstruction, and/or weight-based dosing when appropriate to reduce radiation dose to as low as reasonably achievable. Dictated by Stevenson Peña MD @ Jun 10 2020 6:40AM Signed by Dr. Stevenson Peña @ Jun 10 2020 6:45AM
== END 2020-06-10 07:10 | disposition home or self-care (01) ==
LOC: MW.ED 04:49
DX: R42 Dizziness and giddiness (principal); R10.816 Epigastric abdominal tenderness; R11.2 Nausea with vomiting, unspecified; Z20.828 Contact with and (suspected) exposure to other viral communicable diseases
CPT/HCPCS: 36415; 70450; 71250; 74176; 80053; 80307; 82550; 82728; 83605; 83615; 83690; 83735; 84100; 84145; 84484; 85025; 85610; 86140; 87635; 93005; 96374; 96375; 99284; J2405; J3360; J7120; 93010; U0002

== ENCOUNTER 2022-04-28 10:30 | Emergency (ER) | payer BC | END 2022-04-30 14:50 | disposition home or self-care (01) | LOC: MW.ED 10:30 | DX: R07.81 Pleurodynia (principal); F17.210 Nicotine dependence, cigarettes, uncomplicated; Z20.822 Contact with and (suspected) exposure to COVID-19 | CPT/HCPCS: 71045; 71045-26; 99285 ==